=== PATIENT | male | born 1960 | race Caucasian/White ===

== ENCOUNTER 2021-10-12 15:39 | Inpatient (IN) | payer OTHER ==
[2021-10-12] MEDS ORDERED: IBUPROFEN 400 MG TABLET (FP) PO PRN (16:18)
[2021-10-12] MEDS ORDERED: NALOXONE HCL (KLOXXADO) 8 MG SPRAY NS PRN (16:18)
[2021-10-12] MEDS ORDERED: LOPERAMIDE HCL 2 MG CAPSULE PO PRN (16:18)
[2021-10-12] MEDS ORDERED: MAG HYDROX/AL HYDROX/SIMETH 30 ML UNIT-DOSE CUP PO PRN (16:18)
[2021-10-12] MEDS ORDERED: ONDANSETRON *ODT* 4 MG TABLET SL PRN (16:18)
[2021-10-12] MEDS ORDERED: BENZOCAINE/MENTHOL (CHLORASEPTIC ) LOZENGE MM PRN (16:18)
[2021-10-12] MEDS ORDERED: MAGNESIUM CITRATE 300 ML BOTTLE PO PRN (16:18)
[2021-10-12] MEDS ORDERED: ACETAMINOPHEN 325 MG TABLET (FP) PO PRN ×2 (16:18)
[2021-10-12] MEDS ORDERED: MAGNESIUM HYDROX 2400MG/30ML ORAL SUSPENSION 30 ML CUP PO PRN (16:18)
[2021-10-12] MEDS ORDERED: BISMUTH SUBSALICYLATE 524 MG/30 ML PO PRN (16:18)
[2021-10-12] MEDS ORDERED: NICOTINE 10 MG CARTRIDGE (INHALER) IH PRN (16:18)
[2021-10-12] MEDS ORDERED: DICYCLOMINE HCL 10 MG CAPSULE PO PRN (16:18)
[2021-10-12 19:02] VITALS: BMI 24.1
[2021-10-12] MEDS ORDERED: hydrOXYzine PAMOATE 25 MG CAPSULE (FP) PO ONE (22:21)
[2021-10-12] MEDS: diazePAM 5 MG TABLET PO SCH (22:25)
[2021-10-12] MEDS: hydrOXYzine PAMOATE 25 MG CAPSULE (FP) PO SCH ×2 (22:25)
[2021-10-13] MEDS: MELATONIN 5 MG TABLETS PO SCH ×2 (06:50→22:54)
[2021-10-13] MEDS: THIAMINE HCL 100 MG TABLET (FP) PO SCH ×2 (06:51→22:54)
[2021-10-13] MEDS: NICOTINE 14 MG/24 HOURS TOPICAL PATCH TD SCH ×2 (06:51→11:02)
[2021-10-13] MEDS: diazePAM 5 MG TABLET PO SCH ×5 (06:51→22:54)
[2021-10-13] MEDS ORDERED: hydrOXYzine PAMOATE 25 MG CAPSULE (FP) PO ONE (06:53)
[2021-10-13] MEDS ORDERED: diazePAM 5 MG TABLET ONE (06:53)
[2021-10-13] MEDS: hydrOXYzine PAMOATE 25 MG CAPSULE (FP) PO SCH ×5 (06:56→22:54)
[2021-10-13 10:01] LABS: HEMATOCRIT 38.4 % (35.4-49); HEMOGLOBIN 12.7 GM/dL (11.7-16.9); MCH 29.7 pg (25.7-33.7); MCHC 33.1 g/dl (32.0-35.9); MEAN CELL VOLUME 89.6 fl (80-96); MEAN PLT VOLUME 7.4 fl (7.5-11.1); PLATELET COUNT 345 10^3/uL (134-434); RBC 4.28 M/mm3 (4.00-5.60); WHITE BLOOD COUNT 5.2 K/mm3 (4.0-10.0)
[2021-10-13 10:29] LABS: ALBUMIN 3.1 g/dl (3.4-5.0); CALCIUM 9.1 mg/dL (8.5-10.1)
[2021-10-13 10:32] LABS: CREATININE 0.7 mg/dL (0.55-1.3)
[2021-10-13 10:34] LABS: BILIRUBIN,TOTAL 0.6 mg/dL (0.2-1); TOT PROT 6.3 g/dl (6.4-8.2)
[2021-10-13] MEDS: METHOCARBAMOL 500 MG TABLET PO PRN (11:01)
[2021-10-13] MEDS: PRENATAL VITAMINS W/ FOLIC ACID TABLET (FP) PO SCH (11:02)
[2021-10-13] MEDS: diazePAM 5 MG TABLET PO PRN (18:33)
[2021-10-13] MEDS ORDERED: methaDONE HCL 40 MG DISPERSABLE TABLET PO ONE (20:01)
[2021-10-14] MEDS: diazePAM 5 MG TABLET PO SCH ×3 (07:12→21:29)
[2021-10-14] MEDS: hydrOXYzine PAMOATE 25 MG CAPSULE (FP) PO SCH ×5 (07:13→21:29)
[2021-10-14 09:51] LABS: CALCIUM 9.1 mg/dL (8.5-10.1)
[2021-10-14 09:52] LABS: ALBUMIN 2.9 g/dl (3.4-5.0); BLOOD UREA NITROGEN 17.6 mg/dL (7-18)
[2021-10-14 09:55] LABS: CREATININE 0.8 mg/dL (0.55-1.3)
[2021-10-14 09:56] LABS: BILIRUBIN,TOTAL 0.3 mg/dL (0.2-1); TOT PROT 6.1 g/dl (6.4-8.2)
[2021-10-14] MEDS: NICOTINE 14 MG/24 HOURS TOPICAL PATCH TD SCH (11:22)
[2021-10-14] MEDS: PRENATAL VITAMINS W/ FOLIC ACID TABLET (FP) PO SCH (11:22)
[2021-10-14] MEDS: METHOCARBAMOL 500 MG TABLET PO PRN ×2 (11:23→21:29)
[2021-10-14] MEDS: diazePAM 5 MG TABLET PO PRN (11:23)
[2021-10-14] MEDS: methaDONE HCL 10 MG TABLET PO SCH (11:58)
[2021-10-14] MEDS: MELATONIN 5 MG TABLETS PO SCH (21:29)
[2021-10-14] MEDS: THIAMINE HCL 100 MG TABLET (FP) PO SCH (21:29)
[2021-10-15] MEDS ORDERED: diazePAM 5 MG TABLET PO SCH (06:00)
[2021-10-15] MEDS: hydrOXYzine PAMOATE 25 MG CAPSULE (FP) PO SCH ×3 (06:44→13:11)
[2021-10-15] MEDS: methaDONE HCL 10 MG TABLET PO SCH (06:44)
[2021-10-15] MEDS: NICOTINE 14 MG/24 HOURS TOPICAL PATCH TD SCH (10:36)
[2021-10-15] MEDS: PRENATAL VITAMINS W/ FOLIC ACID TABLET (FP) PO SCH (10:36)
[2021-10-15] MEDS: METHOCARBAMOL 500 MG TABLET PO PRN (10:37)
[2021-10-15 13:42] VITALS: BP 136/74; PULSE 74; TEMP 96.8
[2021-10-16] MEDS ORDERED: diazePAM 5 MG TABLET PO ONE (06:00)
== END 2021-10-15 18:00 | disposition home or self-care (01) | DRG 773 ==
LOC: YASAS 15:39 → Y6N 10-13 10:07
PROVIDERS: ADMIT Allergy & Immunology; ATTEND Surgery
PROC: HZ2ZZZZ Detoxification Services for Substance Abuse Treatment (ICD-10-PCS; principal; 2021-10-13)
DX: F11.23 Opioid dependence with withdrawal (principal); F10.230 Alcohol dependence with withdrawal, uncomplicated; F14.10 Cocaine abuse, uncomplicated; F17.210 Nicotine dependence, cigarettes, uncomplicated; F19.24 Other psychoactive substance dependence with psychoactive substance-induced mood disorder; F20.9 Schizophrenia, unspecified; F41.9 Anxiety disorder, unspecified; F32.A Depression, unspecified; Z56.0 Unemployment, unspecified; Z59.00 Homelessness unspecified
CPT/HCPCS: 36415; 80053; 82947; 85027; 86780; 93005; 93010; C9803-CS; U0003; U0005

== ENCOUNTER 2021-11-08 12:21 | Inpatient (IN) | payer OTHER ==
[2021-11-08 12:46] VITALS: BMI 24.1
[2021-11-08] MEDS ORDERED: IBUPROFEN 400 MG TABLET (FP) PO PRN (14:29)
[2021-11-08] MEDS ORDERED: NALOXONE HCL (KLOXXADO) 8 MG SPRAY NS PRN (14:29)
[2021-11-08] MEDS ORDERED: ONDANSETRON *ODT* 4 MG TABLET SL PRN (14:29)
[2021-11-08] MEDS ORDERED: IBUPROFEN 600 MG TABLET (FP) PO PRN (14:29)
[2021-11-08] MEDS ORDERED: MAGNESIUM HYDROX 2400MG/30ML ORAL SUSPENSION 30 ML CUP PO PRN (14:29)
[2021-11-08] MEDS ORDERED: ACETAMINOPHEN 325 MG TABLET (FP) PO PRN ×2 (14:29)
[2021-11-08] MEDS ORDERED: MAG HYDROX/AL HYDROX/SIMETH 30 ML UNIT-DOSE CUP PO PRN (14:29)
[2021-11-08] MEDS ORDERED: LOPERAMIDE HCL 2 MG CAPSULE PO PRN (14:29)
[2021-11-08] MEDS ORDERED: BISMUTH SUBSALICYLATE 262 MG/15 ML BTL PO PRN (14:29)
[2021-11-08] MEDS ORDERED: DICYCLOMINE HCL 10 MG CAPSULE PO PRN (14:29)
[2021-11-08] MEDS ORDERED: NICOTINE 10 MG CARTRIDGE (INHALER) IH PRN (14:29)
[2021-11-08] MEDS ORDERED: MAGNESIUM CITRATE 300 ML BOTTLE PO PRN (14:29)
[2021-11-08] MEDS ORDERED: BENZOCAINE/MENTHOL (CHLORASEPTIC ) LOZENGE MM PRN (14:29)
[2021-11-08] MEDS: hydrOXYzine PAMOATE 25 MG CAPSULE (FP) PO SCH ×2 (18:30→22:44)
[2021-11-08] MEDS ORDERED: LORazepam 1 MG TABLET PO PRN (18:40)
[2021-11-08] MEDS: THIAMINE HCL 100 MG TABLET (FP) PO SCH (22:44)
[2021-11-08] MEDS: LORazepam 2 MG TABLET PO SCH (22:44)
[2021-11-08] MEDS: METHOCARBAMOL 500 MG TABLET PO PRN (22:44)
[2021-11-08] MEDS: MELATONIN 5 MG TABLETS PO SCH (22:44)
[2021-11-09] MEDS: LORazepam 2 MG TABLET PO SCH ×4 (07:00→22:14)
[2021-11-09] MEDS: hydrOXYzine PAMOATE 25 MG CAPSULE (FP) PO SCH ×5 (07:00→22:14)
[2021-11-09 10:14] LABS: HEMOGLOBIN 12.8 GM/dL (11.7-16.9); MCH 29.2 pg (25.7-33.7); MCHC 33.6 g/dl (32.0-35.9); MEAN CELL VOLUME 86.8 fl (80-96); MEAN PLT VOLUME 7.6 fl (7.5-11.1); PLATELET COUNT 340 10^3/uL (134-434); RBC 4.38 M/mm3 (4.00-5.60); RDW 14.1 % (11.9-15.9); WHITE BLOOD COUNT 5.6 K/mm3 (4.0-10.0)
[2021-11-09 10:17] LABS: ALBUMIN 3.2 g/dl (3.4-5.0)
[2021-11-09 10:19] LABS: TOT PROT 6.7 g/dl (6.4-8.2)
[2021-11-09 10:20] LABS: BILIRUBIN,TOTAL 0.4 mg/dL (0.2-1); CREATININE 0.8 mg/dL (0.55-1.3)
[2021-11-09] MEDS: PRENATAL VITAMINS W/ FOLIC ACID TABLET (FP) PO SCH (10:20)
[2021-11-09] MEDS: MELATONIN 5 MG TABLETS PO SCH (22:14)
[2021-11-09] MEDS: METHOCARBAMOL 500 MG TABLET PO PRN (22:14)
[2021-11-09] MEDS: THIAMINE HCL 100 MG TABLET (FP) PO SCH (22:14)
[2021-11-10] MEDS: LORazepam 1 MG TABLET PO SCH ×2 (06:34→10:44)
[2021-11-10] MEDS: hydrOXYzine PAMOATE 25 MG CAPSULE (FP) PO SCH ×2 (06:35→10:44)
[2021-11-10] MEDS: PRENATAL VITAMINS W/ FOLIC ACID TABLET (FP) PO SCH (10:44)
[2021-11-10 12:53] VITALS: BP 125/77; PULSE 96; TEMP 97.5
[2021-11-11] MEDS ORDERED: LORazepam 0.5 MG TABLET PO PRN
[2021-11-11] MEDS ORDERED: LORazepam 0.5 MG TABLET PO SCH (05:00)
[2021-11-12] MEDS ORDERED: LORazepam 0.5 MG TABLET PO ONE (05:00)
== END 2021-11-10 13:18 | disposition left against medical advice (07) | DRG 770 ==
LOC: YASAS 12:21 → UNDOADMIN 15:43 → Y3N 15:43
PROVIDERS: ADMIT Allergy & Immunology; ATTEND Surgery
PROC: HZ2ZZZZ Detoxification Services for Substance Abuse Treatment (ICD-10-PCS; principal; 2021-11-08)
DX: F11.23 Opioid dependence with withdrawal (principal); F10.230 Alcohol dependence with withdrawal, uncomplicated; F14.20 Cocaine dependence, uncomplicated; F13.20 Sedative, hypnotic or anxiolytic dependence, uncomplicated; F12.20 Cannabis dependence, uncomplicated; F19.951 Other psychoactive substance use, unspecified with psychoactive substance-induced psychotic disorder with hallucinations; F17.210 Nicotine dependence, cigarettes, uncomplicated; F19.24 Other psychoactive substance dependence with psychoactive substance-induced mood disorder
CPT/HCPCS: 36415; 80053; 85027; 86780; C9803-CS; U0003; U0005

== ENCOUNTER 2022-04-17 13:42 | Inpatient (IN) | payer OTHER ==
[2022-04-17 15:07] VITALS: BMI 24.1
[2022-04-17] MEDS ORDERED: MAGNESIUM HYDROX 2400MG/30ML ORAL SUSPENSION 30 ML CUP PO PRN (17:11)
[2022-04-17] MEDS ORDERED: guaiFENesin 200 MG/10 ML 10 ML UNIT-DOSE CUPS PO PRN (17:11)
[2022-04-17] MEDS ORDERED: hydrOXYzine PAMOATE 25 MG CAPSULE (FP) PO PRN (17:11)
[2022-04-17] MEDS ORDERED: MAG HYDROX/AL HYDROX/SIMETH 30 ML UNIT-DOSE CUP PO PRN (17:11)
[2022-04-17] MEDS ORDERED: ACETAMINOPHEN 325 MG TABLET (FP) PO PRN (17:11)
[2022-04-17] MEDS ORDERED: P-EPHED 60MG/TRIPROLIDI 2.5MG TABLET PO PRN (17:11)
[2022-04-17] MEDS ORDERED: LOPERAMIDE HCL 2 MG CAPSULE PO PRN (17:11)
[2022-04-17] MEDS ORDERED: NALOXONE HCL 0.4 MG/ML VIAL IM PRN (17:11)
[2022-04-17] MEDS ORDERED: MAGNESIUM CITRATE 300 ML BOTTLE PO PRN (17:11)
[2022-04-17] MEDS: MELATONIN 5 MG TABLETS PO SCH (21:28)
[2022-04-17] MEDS: THIAMINE HCL 100 MG TABLET (FP) PO SCH (21:28)
[2022-04-17] MEDS: CEPHALEXIN MONOHYDRATE 500 MG CAPSULE (UD) PO SCH (21:29)
[2022-04-18] MEDS: PRENATAL VITAMINS W/ FOLIC ACID TABLET (FP) PO SCH (09:25)
[2022-04-18] MEDS: BUPRENORPHINE/NALOXONE 8 MG/2 MG FILM PACKET SL SCH (09:26)
[2022-04-18] MEDS: CEPHALEXIN MONOHYDRATE 500 MG CAPSULE (UD) PO SCH ×2 (09:26→21:16)
[2022-04-18] MEDS: NICOTINE 7 MG/24 HOURS TOPICAL PATCH TD SCH (09:26)
[2022-04-18] MEDS: IBUPROFEN 400 MG TABLET (FP) PO PRN (09:27)
[2022-04-18 10:55] LABS: HEMATOCRIT 36.9 % (35.4-49); HEMOGLOBIN 12.3 GM/dL (11.7-16.9); MCH 28.9 pg (25.7-33.7); MCHC 33.3 g/dl (32.0-35.9); MEAN CELL VOLUME 86.8 fl (80-96); MEAN PLT VOLUME 6.8 fl (7.5-11.1); PLATELET COUNT 420 10^3/uL (134-434); RBC 4.26 M/mm3 (4.00-5.60); RDW 16.3 % (11.9-15.9); WHITE BLOOD COUNT 6.4 K/mm3 (4.0-10.0)
[2022-04-18 11:14] LABS: URINE APPEARANCE CLEAR; URINE BILIRUBIN NEGATIVE (NEGATIVE); URINE COLOR YELLOW; URINE GLUCOSE (UA) NEGATIVE (NEGATIVE); URINE KETONE NEGATIVE (NEGATIVE); URINE LEUK ESTERASE NEGATIVE (NEGATIVE); URINE NITRITE NEGATIVE (NEGATIVE); URINE PROTEIN NEGATIVE (NEGATIVE); URINE UROBILINOGEN 0.2 mg/dL (0.2-1.0)
[2022-04-18 11:41] LABS: ALBUMIN 2.9 g/dl (3.4-5.0); BLOOD UREA NITROGEN 22.9 mg/dL (7-18); CALCIUM 8.8 mg/dL (8.5-10.1)
[2022-04-18 11:45] LABS: BILIRUBIN,TOTAL 0.3 mg/dL (0.2-1)
[2022-04-18 11:49] LABS: TOT PROT 6.2 g/dl (6.4-8.2)
[2022-04-18 12:27] LABS: SYPHILIS W/ RPR CONF NON-REACTIVE (NONREACTIVE)
[2022-04-18] MEDS: THIAMINE HCL 100 MG TABLET (FP) PO SCH (21:16)
[2022-04-18] MEDS: MELATONIN 5 MG TABLETS PO SCH (21:16)
[2022-04-18] MEDS: BACLOFEN 10 MG TABLET (FP) PO SCH (21:17)
[2022-04-19] MEDS: PRENATAL VITAMINS W/ FOLIC ACID TABLET (FP) PO SCH (09:57)
[2022-04-19] MEDS: IBUPROFEN 400 MG TABLET (FP) PO PRN (09:58)
[2022-04-19] MEDS: NICOTINE 10 MG CARTRIDGE (INHALER) IH PRN (09:59)
[2022-04-19] MEDS: NICOTINE 7 MG/24 HOURS TOPICAL PATCH TD SCH (10:00)
[2022-04-19] MEDS: BUPRENORPHINE/NALOXONE 8 MG/2 MG FILM PACKET SL SCH (10:00)
[2022-04-19] MEDS: BACLOFEN 10 MG TABLET (FP) PO SCH ×2 (10:00→21:14)
[2022-04-19] MEDS: CEPHALEXIN MONOHYDRATE 500 MG CAPSULE (UD) PO SCH ×2 (10:00→21:14)
[2022-04-19] MEDS ORDERED: BACITRACIN 15 GM TUBE TOPICAL OINTMENT TP SCH (10:00)
[2022-04-19] MEDS: BACITRACIN 0.9 GM PACKET TP SCH ×2 (10:49→21:15)
[2022-04-19] MEDS: THIAMINE HCL 100 MG TABLET (FP) PO SCH (21:14)
[2022-04-19] MEDS: MELATONIN 5 MG TABLETS PO SCH (21:14)
[2022-04-20] MEDS: PRENATAL VITAMINS W/ FOLIC ACID TABLET (FP) PO SCH (09:38)
[2022-04-20] MEDS: NICOTINE 7 MG/24 HOURS TOPICAL PATCH TD SCH (09:38)
[2022-04-20] MEDS: IBUPROFEN 400 MG TABLET (FP) PO PRN (09:39)
[2022-04-20] MEDS: BACITRACIN 0.9 GM PACKET TP SCH ×2 (09:39→21:08)
[2022-04-20] MEDS: CEPHALEXIN MONOHYDRATE 500 MG CAPSULE (UD) PO SCH ×2 (09:40→21:08)
[2022-04-20] MEDS: BUPRENORPHINE/NALOXONE 8 MG/2 MG FILM PACKET SL SCH (09:40)
[2022-04-20] MEDS: BACLOFEN 10 MG TABLET (FP) PO SCH ×2 (09:40→21:08)
[2022-04-20] MEDS: NICOTINE 10 MG CARTRIDGE (INHALER) IH PRN (09:42)
[2022-04-20] MEDS: MELATONIN 5 MG TABLETS PO SCH (21:08)
[2022-04-20] MEDS: THIAMINE HCL 100 MG TABLET (FP) PO SCH (21:08)
[2022-04-21] MEDS: PRENATAL VITAMINS W/ FOLIC ACID TABLET (FP) PO SCH (09:16)
[2022-04-21] MEDS: BUPRENORPHINE/NALOXONE 8 MG/2 MG FILM PACKET SL SCH (09:17)
[2022-04-21] MEDS: CEPHALEXIN MONOHYDRATE 500 MG CAPSULE (UD) PO SCH ×2 (09:17→21:50)
[2022-04-21] MEDS: BACLOFEN 10 MG TABLET (FP) PO SCH ×2 (09:17→21:50)
[2022-04-21] MEDS: BACITRACIN 0.9 GM PACKET TP SCH ×2 (09:19→21:49)
[2022-04-21] MEDS: NICOTINE 7 MG/24 HOURS TOPICAL PATCH TD SCH (09:19)
[2022-04-21] MEDS: MELATONIN 5 MG TABLETS PO SCH (21:50)
[2022-04-21] MEDS: THIAMINE HCL 100 MG TABLET (FP) PO SCH (21:50)
[2022-04-22] MEDS: NICOTINE 7 MG/24 HOURS TOPICAL PATCH TD SCH (09:52)
[2022-04-22] MEDS: BUPRENORPHINE/NALOXONE 8 MG/2 MG FILM PACKET SL SCH (09:52)
[2022-04-22] MEDS: PRENATAL VITAMINS W/ FOLIC ACID TABLET (FP) PO SCH (09:52)
[2022-04-22] MEDS: CEPHALEXIN MONOHYDRATE 500 MG CAPSULE (UD) PO SCH ×2 (09:53→21:47)
[2022-04-22] MEDS: BACITRACIN 0.9 GM PACKET TP SCH ×2 (09:53→21:49)
[2022-04-22] MEDS: BACLOFEN 10 MG TABLET (FP) PO SCH ×2 (09:53→21:47)
[2022-04-22] MEDS: THIAMINE HCL 100 MG TABLET (FP) PO SCH (21:48)
[2022-04-22] MEDS: MELATONIN 5 MG TABLETS PO SCH (21:48)
[2022-04-23] MEDS: BACITRACIN 0.9 GM PACKET TP SCH ×2 (09:39→21:19)
[2022-04-23] MEDS: BUPRENORPHINE/NALOXONE 8 MG/2 MG FILM PACKET SL SCH (09:40)
[2022-04-23] MEDS: PRENATAL VITAMINS W/ FOLIC ACID TABLET (FP) PO SCH (09:40)
[2022-04-23] MEDS: CEPHALEXIN MONOHYDRATE 500 MG CAPSULE (UD) PO SCH (09:40)
[2022-04-23] MEDS: NICOTINE 7 MG/24 HOURS TOPICAL PATCH TD SCH (09:40)
[2022-04-23] MEDS: BACLOFEN 10 MG TABLET (FP) PO SCH ×3 (09:40→21:19)
[2022-04-23] MEDS: LIDOCAINE 5% TOPICAL PATCH TP SCH (11:00)
[2022-04-23] MEDS ORDERED: NICOTINE 7 MG/24 HOURS TOPICAL PATCH TD PRN (12:32)
[2022-04-23] MEDS: LIDOCAINE PATCH REMOVAL MC SCH (21:19)
[2022-04-23] MEDS: THIAMINE HCL 100 MG TABLET (FP) PO SCH (21:19)
[2022-04-23] MEDS: MELATONIN 5 MG TABLETS PO SCH (21:19)
[2022-04-24] MEDS: BACLOFEN 10 MG TABLET (FP) PO SCH ×3 (06:32→21:33)
[2022-04-24] MEDS: IBUPROFEN 400 MG TABLET (FP) PO PRN (09:00)
[2022-04-24] MEDS: BACITRACIN 0.9 GM PACKET TP SCH ×2 (09:00→21:33)
[2022-04-24] MEDS: BUPRENORPHINE/NALOXONE 8 MG/2 MG FILM PACKET SL SCH (09:01)
[2022-04-24] MEDS: LIDOCAINE 5% TOPICAL PATCH TP SCH (09:01)
[2022-04-24] MEDS: PRENATAL VITAMINS W/ FOLIC ACID TABLET (FP) PO SCH (09:01)
[2022-04-24] MEDS: LIDOCAINE PATCH REMOVAL MC SCH (21:33)
[2022-04-24] MEDS: THIAMINE HCL 100 MG TABLET (FP) PO SCH (21:33)
[2022-04-24] MEDS: MELATONIN 5 MG TABLETS PO SCH (21:33)
[2022-04-25] MEDS: BACLOFEN 10 MG TABLET (FP) PO SCH ×3 (06:36→21:09)
[2022-04-25] MEDS: NICOTINE 10 MG CARTRIDGE (INHALER) IH PRN (09:58)
[2022-04-25] MEDS: PRENATAL VITAMINS W/ FOLIC ACID TABLET (FP) PO SCH (10:10)
[2022-04-25] MEDS: LIDOCAINE 5% TOPICAL PATCH TP SCH (10:10)
[2022-04-25] MEDS: BUPRENORPHINE/NALOXONE 8 MG/2 MG FILM PACKET SL SCH (10:10)
[2022-04-25] MEDS: BACITRACIN 0.9 GM PACKET TP SCH ×2 (10:11→21:09)
[2022-04-25] MEDS: THIAMINE HCL 100 MG TABLET (FP) PO SCH (21:09)
[2022-04-25] MEDS: MELATONIN 5 MG TABLETS PO SCH (21:09)
[2022-04-25] MEDS: LIDOCAINE PATCH REMOVAL MC SCH (21:09)
[2022-04-26] MEDS: BACLOFEN 10 MG TABLET (FP) PO SCH ×3 (06:05→21:25)
[2022-04-26] MEDS: PRENATAL VITAMINS W/ FOLIC ACID TABLET (FP) PO SCH (10:06)
[2022-04-26] MEDS: BACITRACIN 0.9 GM PACKET TP SCH ×2 (10:06→21:25)
[2022-04-26] MEDS: LIDOCAINE 5% TOPICAL PATCH TP SCH (10:06)
[2022-04-26] MEDS: BUPRENORPHINE/NALOXONE 8 MG/2 MG FILM PACKET SL SCH (10:07)
[2022-04-26] MEDS: MELATONIN 5 MG TABLETS PO SCH (21:24)
[2022-04-26] MEDS: THIAMINE HCL 100 MG TABLET (FP) PO SCH (21:24)
[2022-04-26] MEDS: LIDOCAINE PATCH REMOVAL MC SCH (21:25)
[2022-04-27] MEDS: BACLOFEN 10 MG TABLET (FP) PO SCH ×3 (06:05→21:49)
[2022-04-27] MEDS: LIDOCAINE 5% TOPICAL PATCH TP SCH (09:03)
[2022-04-27] MEDS: BACITRACIN 0.9 GM PACKET TP SCH ×2 (09:03→21:49)
[2022-04-27] MEDS: PRENATAL VITAMINS W/ FOLIC ACID TABLET (FP) PO SCH (09:04)
[2022-04-27] MEDS: NICOTINE 10 MG CARTRIDGE (INHALER) IH PRN (09:06)
[2022-04-27] MEDS: BUPRENORPHINE/NALOXONE 8 MG/2 MG FILM PACKET SL SCH (09:07)
[2022-04-27] MEDS: MELATONIN 5 MG TABLETS PO SCH (21:49)
[2022-04-27] MEDS: LIDOCAINE PATCH REMOVAL MC SCH (21:50)
[2022-04-27] MEDS: THIAMINE HCL 100 MG TABLET (FP) PO SCH (21:50)
[2022-04-28] MEDS: BACLOFEN 10 MG TABLET (FP) PO SCH ×3 (06:19→21:23)
[2022-04-28] MEDS: NICOTINE 10 MG CARTRIDGE (INHALER) IH PRN (06:19)
[2022-04-28] MEDS: PRENATAL VITAMINS W/ FOLIC ACID TABLET (FP) PO SCH (09:43)
[2022-04-28] MEDS: LIDOCAINE 5% TOPICAL PATCH TP SCH (09:43)
[2022-04-28] MEDS: BUPRENORPHINE/NALOXONE 8 MG/2 MG FILM PACKET SL SCH (09:43)
[2022-04-28] MEDS: BACITRACIN 0.9 GM PACKET TP SCH ×2 (09:44→21:23)
[2022-04-28] MEDS: THIAMINE HCL 100 MG TABLET (FP) PO SCH (21:23)
[2022-04-28] MEDS: MELATONIN 5 MG TABLETS PO SCH (21:23)
[2022-04-28] MEDS: LIDOCAINE PATCH REMOVAL MC SCH (21:23)
[2022-04-29] MEDS: BACLOFEN 10 MG TABLET (FP) PO SCH ×3 (05:59→21:25)
[2022-04-29] MEDS: PRENATAL VITAMINS W/ FOLIC ACID TABLET (FP) PO SCH (09:32)
[2022-04-29] MEDS: BUPRENORPHINE/NALOXONE 8 MG/2 MG FILM PACKET SL SCH (09:32)
[2022-04-29] MEDS: LIDOCAINE 5% TOPICAL PATCH TP SCH ×2 (09:34→10:31)
[2022-04-29] MEDS: BACITRACIN 0.9 GM PACKET TP SCH ×2 (09:34→21:25)
[2022-04-29] MEDS: LIDOCAINE PATCH REMOVAL MC SCH (21:25)
[2022-04-29] MEDS: MELATONIN 5 MG TABLETS PO SCH (21:25)
[2022-04-29] MEDS: THIAMINE HCL 100 MG TABLET (FP) PO SCH (21:25)
[2022-04-30] MEDS: NICOTINE 10 MG CARTRIDGE (INHALER) IH PRN (06:20)
[2022-04-30] MEDS: BACLOFEN 10 MG TABLET (FP) PO SCH ×3 (06:23→21:44)
[2022-04-30] MEDS: PRENATAL VITAMINS W/ FOLIC ACID TABLET (FP) PO SCH (09:59)
[2022-04-30] MEDS: BACITRACIN 0.9 GM PACKET TP SCH ×2 (09:59→21:44)
[2022-04-30] MEDS: LIDOCAINE 5% TOPICAL PATCH TP SCH (10:00)
[2022-04-30] MEDS: BUPRENORPHINE/NALOXONE 8 MG/2 MG FILM PACKET SL SCH (10:01)
[2022-04-30] MEDS: THIAMINE HCL 100 MG TABLET (FP) PO SCH (21:44)
[2022-04-30] MEDS: MELATONIN 5 MG TABLETS PO SCH (21:44)
[2022-04-30] MEDS: LIDOCAINE PATCH REMOVAL MC SCH (21:54)
[2022-05-01] MEDS: BACLOFEN 10 MG TABLET (FP) PO SCH ×3 (06:06→21:38)
[2022-05-01] MEDS: LIDOCAINE 5% TOPICAL PATCH TP SCH (09:37)
[2022-05-01] MEDS: BACITRACIN 0.9 GM PACKET TP SCH ×2 (09:37→21:39)
[2022-05-01] MEDS: PRENATAL VITAMINS W/ FOLIC ACID TABLET (FP) PO SCH (09:37)
[2022-05-01] MEDS: NICOTINE 10 MG CARTRIDGE (INHALER) IH PRN (09:38)
[2022-05-01] MEDS: BUPRENORPHINE/NALOXONE 8 MG/2 MG FILM PACKET SL SCH (09:38)
[2022-05-01] MEDS: LIDOCAINE PATCH REMOVAL MC SCH (21:38)
[2022-05-01] MEDS: THIAMINE HCL 100 MG TABLET (FP) PO SCH (21:38)
[2022-05-01] MEDS: MELATONIN 5 MG TABLETS PO SCH (21:38)
[2022-05-02] MEDS: BACLOFEN 10 MG TABLET (FP) PO SCH ×3 (06:33→21:10)
[2022-05-02] MEDS: PRENATAL VITAMINS W/ FOLIC ACID TABLET (FP) PO SCH (09:39)
[2022-05-02] MEDS: LIDOCAINE 5% TOPICAL PATCH TP SCH (09:39)
[2022-05-02] MEDS: BACITRACIN 0.9 GM PACKET TP SCH ×2 (09:40→21:10)
[2022-05-02] MEDS: BUPRENORPHINE/NALOXONE 8 MG/2 MG FILM PACKET SL SCH (09:40)
[2022-05-02] MEDS: NICOTINE 10 MG CARTRIDGE (INHALER) IH PRN (09:41)
[2022-05-02] MEDS: THIAMINE HCL 100 MG TABLET (FP) PO SCH (21:10)
[2022-05-02] MEDS: MELATONIN 5 MG TABLETS PO SCH (21:10)
[2022-05-02] MEDS: LIDOCAINE PATCH REMOVAL MC SCH (21:11)
[2022-05-03] MEDS: BACLOFEN 10 MG TABLET (FP) PO SCH ×3 (06:25→21:12)
[2022-05-03] MEDS: BACITRACIN 0.9 GM PACKET TP SCH ×2 (09:30→21:11)
[2022-05-03] MEDS: PRENATAL VITAMINS W/ FOLIC ACID TABLET (FP) PO SCH (09:30)
[2022-05-03] MEDS: LIDOCAINE 5% TOPICAL PATCH TP SCH (09:30)
[2022-05-03] MEDS: BUPRENORPHINE/NALOXONE 8 MG/2 MG FILM PACKET SL SCH (09:32)
[2022-05-03] MEDS: LIDOCAINE PATCH REMOVAL MC SCH (21:11)
[2022-05-03] MEDS: MELATONIN 5 MG TABLETS PO SCH (21:12)
[2022-05-03] MEDS: THIAMINE HCL 100 MG TABLET (FP) PO SCH (21:12)
[2022-05-04] MEDS: BACLOFEN 10 MG TABLET (FP) PO SCH ×3 (06:33→21:41)
[2022-05-04] MEDS: NICOTINE 10 MG CARTRIDGE (INHALER) IH PRN (06:34)
[2022-05-04] MEDS: PRENATAL VITAMINS W/ FOLIC ACID TABLET (FP) PO SCH (09:37)
[2022-05-04] MEDS: LIDOCAINE 5% TOPICAL PATCH TP SCH (09:38)
[2022-05-04] MEDS: BUPRENORPHINE/NALOXONE 8 MG/2 MG FILM PACKET SL SCH (09:39)
[2022-05-04] MEDS: BACITRACIN 0.9 GM PACKET TP SCH ×2 (09:40→21:41)
[2022-05-04] MEDS: THIAMINE HCL 100 MG TABLET (FP) PO SCH (21:41)
[2022-05-04] MEDS: MELATONIN 5 MG TABLETS PO SCH (21:41)
[2022-05-04] MEDS: LIDOCAINE PATCH REMOVAL MC SCH (21:41)
[2022-05-05] MEDS: BACLOFEN 10 MG TABLET (FP) PO SCH ×3 (06:01→21:17)
[2022-05-05] MEDS: BUPRENORPHINE/NALOXONE 8 MG/2 MG FILM PACKET SL SCH (09:38)
[2022-05-05] MEDS: PRENATAL VITAMINS W/ FOLIC ACID TABLET (FP) PO SCH (09:38)
[2022-05-05] MEDS: LIDOCAINE 5% TOPICAL PATCH TP SCH (09:40)
[2022-05-05] MEDS: BACITRACIN 0.9 GM PACKET TP SCH ×2 (09:40→21:18)
[2022-05-05] MEDS: NICOTINE 10 MG CARTRIDGE (INHALER) IH PRN (17:00)
[2022-05-05] MEDS: THIAMINE HCL 100 MG TABLET (FP) PO SCH (21:17)
[2022-05-05] MEDS: MELATONIN 5 MG TABLETS PO SCH (21:17)
[2022-05-05] MEDS: LIDOCAINE PATCH REMOVAL MC SCH (21:18)
[2022-05-06] MEDS: BACLOFEN 10 MG TABLET (FP) PO SCH ×3 (06:29→21:41)
[2022-05-06] MEDS: PRENATAL VITAMINS W/ FOLIC ACID TABLET (FP) PO SCH (09:42)
[2022-05-06] MEDS: BUPRENORPHINE/NALOXONE 8 MG/2 MG FILM PACKET SL SCH (09:42)
[2022-05-06] MEDS: LIDOCAINE 5% TOPICAL PATCH TP SCH (09:43)
[2022-05-06] MEDS: BACITRACIN 0.9 GM PACKET TP SCH ×2 (09:43→21:42)
[2022-05-06] MEDS: NICOTINE 10 MG CARTRIDGE (INHALER) IH PRN (09:48)
[2022-05-06] MEDS: THIAMINE HCL 100 MG TABLET (FP) PO SCH (21:41)
[2022-05-06] MEDS: LIDOCAINE PATCH REMOVAL MC SCH (21:41)
[2022-05-06] MEDS: MELATONIN 5 MG TABLETS PO SCH (21:41)
[2022-05-07] MEDS: BACLOFEN 10 MG TABLET (FP) PO SCH ×3 (06:46→21:23)
[2022-05-07] MEDS: LIDOCAINE 5% TOPICAL PATCH TP SCH (09:27)
[2022-05-07] MEDS: PRENATAL VITAMINS W/ FOLIC ACID TABLET (FP) PO SCH (09:27)
[2022-05-07] MEDS: BACITRACIN 0.9 GM PACKET TP SCH ×2 (09:27→21:23)
[2022-05-07] MEDS: BUPRENORPHINE/NALOXONE 8 MG/2 MG FILM PACKET SL SCH (09:28)
[2022-05-07] MEDS: THIAMINE HCL 100 MG TABLET (FP) PO SCH (21:23)
[2022-05-07] MEDS: MELATONIN 5 MG TABLETS PO SCH (21:23)
[2022-05-07] MEDS: LIDOCAINE PATCH REMOVAL MC SCH (21:24)
[2022-05-08] MEDS: BACLOFEN 10 MG TABLET (FP) PO SCH ×3 (06:23→22:13)
[2022-05-08] MEDS: PRENATAL VITAMINS W/ FOLIC ACID TABLET (FP) PO SCH (09:44)
[2022-05-08] MEDS: LIDOCAINE 5% TOPICAL PATCH TP SCH (09:44)
[2022-05-08] MEDS: BACITRACIN 0.9 GM PACKET TP SCH ×2 (09:44→22:13)
[2022-05-08] MEDS: BUPRENORPHINE/NALOXONE 8 MG/2 MG FILM PACKET SL SCH (09:45)
[2022-05-08] MEDS: NICOTINE 10 MG CARTRIDGE (INHALER) IH PRN (09:45)
[2022-05-08] MEDS: THIAMINE HCL 100 MG TABLET (FP) PO SCH (22:13)
[2022-05-08] MEDS: MELATONIN 5 MG TABLETS PO SCH (22:13)
[2022-05-08] MEDS: LIDOCAINE PATCH REMOVAL MC SCH (22:13)
[2022-05-09] MEDS: BACLOFEN 10 MG TABLET (FP) PO SCH ×3 (05:53→21:19)
[2022-05-09] MEDS: LIDOCAINE 5% TOPICAL PATCH TP SCH (09:37)
[2022-05-09] MEDS: BACITRACIN 0.9 GM PACKET TP SCH ×2 (09:37→21:19)
[2022-05-09] MEDS: PRENATAL VITAMINS W/ FOLIC ACID TABLET (FP) PO SCH (09:37)
[2022-05-09] MEDS: BUPRENORPHINE/NALOXONE 8 MG/2 MG FILM PACKET SL SCH (09:38)
[2022-05-09] MEDS: NICOTINE 10 MG CARTRIDGE (INHALER) IH PRN (09:38)
[2022-05-09] MEDS: MELATONIN 5 MG TABLETS PO SCH (21:18)
[2022-05-09] MEDS: THIAMINE HCL 100 MG TABLET (FP) PO SCH (21:18)
[2022-05-09] MEDS: LIDOCAINE PATCH REMOVAL MC SCH (21:19)
[2022-05-10] MEDS: BACLOFEN 10 MG TABLET (FP) PO SCH ×3 (06:09→21:19)
[2022-05-10] MEDS: BUPRENORPHINE/NALOXONE 8 MG/2 MG FILM PACKET SL SCH (10:11)
[2022-05-10] MEDS: BACITRACIN 0.9 GM PACKET TP SCH ×2 (10:12→21:19)
[2022-05-10] MEDS: LIDOCAINE 5% TOPICAL PATCH TP SCH (10:12)
[2022-05-10] MEDS: PRENATAL VITAMINS W/ FOLIC ACID TABLET (FP) PO SCH (10:13)
[2022-05-10] MEDS: NICOTINE 10 MG CARTRIDGE (INHALER) IH PRN (16:39)
[2022-05-10] MEDS: MELATONIN 5 MG TABLETS PO SCH (21:19)
[2022-05-10] MEDS: THIAMINE HCL 100 MG TABLET (FP) PO SCH (21:19)
[2022-05-10] MEDS: LIDOCAINE PATCH REMOVAL MC SCH (21:19)
[2022-05-11] MEDS: BACLOFEN 10 MG TABLET (FP) PO SCH ×3 (06:36→21:51)
[2022-05-11] MEDS: LIDOCAINE 5% TOPICAL PATCH TP SCH (09:42)
[2022-05-11] MEDS: BUPRENORPHINE/NALOXONE 8 MG/2 MG FILM PACKET SL SCH (09:43)
[2022-05-11] MEDS: BACITRACIN 0.9 GM PACKET TP SCH ×2 (09:43→21:51)
[2022-05-11] MEDS: NICOTINE 10 MG CARTRIDGE (INHALER) IH PRN (09:43)
[2022-05-11] MEDS: PRENATAL VITAMINS W/ FOLIC ACID TABLET (FP) PO SCH (09:43)
[2022-05-11] MEDS: MELATONIN 5 MG TABLETS PO SCH (21:51)
[2022-05-11] MEDS: LIDOCAINE PATCH REMOVAL MC SCH (21:51)
[2022-05-11] MEDS: THIAMINE HCL 100 MG TABLET (FP) PO SCH (21:51)
[2022-05-12] MEDS: BACLOFEN 10 MG TABLET (FP) PO SCH ×3 (06:11→21:59)
[2022-05-12] MEDS: PRENATAL VITAMINS W/ FOLIC ACID TABLET (FP) PO SCH (09:55)
[2022-05-12] MEDS: BACITRACIN 0.9 GM PACKET TP SCH ×2 (09:56→21:59)
[2022-05-12] MEDS: LIDOCAINE 5% TOPICAL PATCH TP SCH (09:56)
[2022-05-12] MEDS: BUPRENORPHINE/NALOXONE 8 MG/2 MG FILM PACKET SL SCH (09:56)
[2022-05-12] MEDS: NICOTINE 10 MG CARTRIDGE (INHALER) IH PRN (10:02)
[2022-05-12] MEDS: THIAMINE HCL 100 MG TABLET (FP) PO SCH (21:55)
[2022-05-12] MEDS: LIDOCAINE PATCH REMOVAL MC SCH (21:59)
[2022-05-12] MEDS: MELATONIN 5 MG TABLETS PO SCH (21:59)
[2022-05-13] MEDS: BACLOFEN 10 MG TABLET (FP) PO SCH ×3 (06:31→21:48)
[2022-05-13] MEDS: LIDOCAINE 5% TOPICAL PATCH TP SCH (09:48)
[2022-05-13] MEDS: PRENATAL VITAMINS W/ FOLIC ACID TABLET (FP) PO SCH (09:48)
[2022-05-13] MEDS: BUPRENORPHINE/NALOXONE 8 MG/2 MG FILM PACKET SL SCH (09:48)
[2022-05-13] MEDS: BACITRACIN 0.9 GM PACKET TP SCH ×2 (09:48→21:47)
[2022-05-13] MEDS: NICOTINE 10 MG CARTRIDGE (INHALER) IH PRN (09:50)
[2022-05-13] MEDS: THIAMINE HCL 100 MG TABLET (FP) PO SCH (21:48)
[2022-05-13] MEDS: MELATONIN 5 MG TABLETS PO SCH (21:48)
[2022-05-13] MEDS: LIDOCAINE PATCH REMOVAL MC SCH (21:48)
[2022-05-14] MEDS: BACLOFEN 10 MG TABLET (FP) PO SCH ×3 (06:30→22:28)
[2022-05-14 06:42] VITALS: RESP 18; TEMP 98.4
[2022-05-14] MEDS: BACITRACIN 0.9 GM PACKET TP SCH ×2 (10:11→22:28)
[2022-05-14] MEDS: LIDOCAINE 5% TOPICAL PATCH TP SCH (10:11)
[2022-05-14] MEDS: PRENATAL VITAMINS W/ FOLIC ACID TABLET (FP) PO SCH (10:12)
[2022-05-14] MEDS: BUPRENORPHINE/NALOXONE 8 MG/2 MG FILM PACKET SL SCH (10:12)
[2022-05-14] MEDS: NICOTINE 10 MG CARTRIDGE (INHALER) IH PRN (10:13)
[2022-05-14] MEDS: LIDOCAINE PATCH REMOVAL MC SCH (22:28)
[2022-05-14] MEDS: THIAMINE HCL 100 MG TABLET (FP) PO SCH (22:29)
[2022-05-14] MEDS: MELATONIN 5 MG TABLETS PO SCH (22:29)
[2022-05-15] MEDS: BACLOFEN 10 MG TABLET (FP) PO SCH (06:17)
[2022-05-15 06:37] VITALS: BP 149/84; PULSE 67
[2022-05-15] MEDS: LIDOCAINE 5% TOPICAL PATCH TP SCH (09:09)
[2022-05-15] MEDS: PRENATAL VITAMINS W/ FOLIC ACID TABLET (FP) PO SCH (09:09)
[2022-05-15] MEDS: BUPRENORPHINE/NALOXONE 8 MG/2 MG FILM PACKET SL SCH (09:09)
[2022-05-15] MEDS: BACITRACIN 0.9 GM PACKET TP SCH (09:09)
== END 2022-05-15 09:25 | disposition home or self-care (01) | DRG 772 ==
LOC: YASAS 13:42 → Y3W 19:39
PROVIDERS: ADMIT Allergy & Immunology; ATTEND Surgery
PROC: HZ42ZZZ Group Counseling for Substance Abuse Treatment, Cognitive-Behavioral (ICD-10-PCS; principal; 2022-04-17)
DX: F11.20 Opioid dependence, uncomplicated (principal); F14.20 Cocaine dependence, uncomplicated; F10.10 Alcohol abuse, uncomplicated; F13.10 Sedative, hypnotic or anxiolytic abuse, uncomplicated; F17.210 Nicotine dependence, cigarettes, uncomplicated; F19.24 Other psychoactive substance dependence with psychoactive substance-induced mood disorder; L98.491 Non-pressure chronic ulcer of skin of other sites limited to breakdown of skin; M54.50 Low back pain, unspecified; G89.29 Other chronic pain; Z99.89 Dependence on other enabling machines and devices; Z86.19 Personal history of other infectious and parasitic diseases; Z56.0 Unemployment, unspecified; Z59.00 Homelessness unspecified
CPT/HCPCS: 36415; 80053; 81003; 83036; 85027; 86780; 86803; 87522; C9803-CS; J0475; U0003; U0005

== ENCOUNTER 2024-02-28 15:12 | Inpatient (IN) | payer OTHER ==
[2024-02-28 15:42] VITALS: BMI 22.8
[2024-02-28] MEDS ORDERED: NALOXONE (NARCAN) HCL 4 MG/0.1 ML SPRAY NS PRN (16:42)
[2024-02-28] MEDS ORDERED: NALOXONE HCL 0.4 MG/ML VIAL IM PRN (16:42)
[2024-02-28] MEDS ORDERED: IBUPROFEN 400 MG TABLET (FP) PO PRN (16:42)
[2024-02-28] MEDS ORDERED: P-EPHED 60MG/TRIPROLIDI 2.5MG TABLET PO PRN (16:42)
[2024-02-28] MEDS ORDERED: NICOTINE POLACRILEX 2 MG LOZENGE BC PRN (16:42)
[2024-02-28] MEDS ORDERED: MAGNESIUM HYDROX 2400MG/30ML ORAL SUSPENSION 30 ML CUP PO PRN (16:42)
[2024-02-28] MEDS ORDERED: guaiFENesin 600 MG TABLET.ER (FP) PO PRN (16:42)
[2024-02-28] MEDS ORDERED: DICYCLOMINE HCL 10 MG CAPSULE PO PRN (16:42)
[2024-02-28] MEDS ORDERED: BENZONATATE 200 MG CAPSULE PO PRN (16:42)
[2024-02-28] MEDS ORDERED: POLYETHYLENE GLYCOL (HEALTHYLAX) 3350 17 GM PACKET PO PRN (16:42)
[2024-02-28] MEDS ORDERED: ACETAMINOPHEN 325 MG TABLET (FP) PO PRN (16:42)
[2024-02-28] MEDS ORDERED: BENZOCAINE/MENTHOL (CHLORASEPTIC ) LOZENGE MM PRN (16:42)
[2024-02-28] MEDS ORDERED: MAG HYDROX/AL HYDROX/SIMETH 30 ML UNIT-DOSE CUP PO PRN (16:42)
[2024-02-28] MEDS: cloNIDine HCL 0.1 MG TABLET PO PRN (19:43)
[2024-02-28] MEDS: hydrOXYzine PAMOATE 25 MG CAPSULE (FP) PO PRN (22:27)
[2024-02-28] MEDS: MELATONIN 5 MG TABLETS PO SCH (22:27)
[2024-02-28] MEDS: THIAMINE 100 MG TABLET PO SCH (22:27)
[2024-02-28] MEDS: METHOCARBAMOL 500 MG TABLET PO PRN (22:27)
[2024-02-29] MEDS: IBUPROFEN 600 MG TABLET (FP) PO PRN (02:09)
[2024-02-29] MEDS: ONDANSETRON *ODT* 4 MG TABLET SL PRN (02:11)
[2024-02-29] MEDS: methaDONE HCL 10 MG TABLET (FOR DETOX USE ONLY) PO ONE ×2 (02:12→09:54)
[2024-02-29 09:01] LABS: POTASSIUM 4.3 mmol/L (3.5-5.1)
[2024-02-29 09:06] LABS: HEMATOCRIT 40.5 % (35.4-49); MCH 28.8 pg (25.7-33.7); MCHC 32.2 g/dl (32.0-35.9); MEAN CELL VOLUME 89.3 fl (80-96); PLATELET COUNT 331 10^3/uL (134-434); RBC 4.54 M/mm3 (4.00-5.60); RDW 15.2 % (11.9-15.9); WHITE BLOOD COUNT 7.3 K/mm3 (4.0-10.0)
[2024-02-29 09:15] LABS: ALBUMIN 3.4 g/dl (3.4-5.0); BLOOD UREA NITROGEN 16.8 mg/dL (7-18)
[2024-02-29 09:18] LABS: CREATININE 0.8 mg/dL (0.55-1.3)
[2024-02-29 09:19] LABS: BILIRUBIN,TOTAL 0.4 mg/dL (0.2-1)
[2024-02-29 09:20] LABS: TOT PROT 7.3 g/dl (6.4-8.2)
[2024-02-29] MEDS: PRENATAL VITAMINS W/ FOLIC ACID TABLET (FP) PO SCH (09:53)
[2024-02-29] MEDS: SUVOREXANT 5 MG TABLET PO PRN (22:59)
[2024-03-01] MEDS: BISMUTH SUBSALICYLATE 524 MG/30 ML PO PRN (14:24)
[2024-03-01] MEDS: amLODIPine BESYLATE 5 MG TABLET (FP) PO SCH (14:48)
[2024-03-01] MEDS: LOPERAMIDE HCL 2 MG CAPSULE PO PRN (19:14)
[2024-03-02] MEDS: methaDONE HCL 10 MG TABLET (FOR DETOX USE ONLY) PO ONE (09:45)
[2024-03-02] MEDS: LIDOCAINE 5% TOPICAL PATCH TP SCH (11:38)
[2024-03-02] MEDS: GABAPENTIN 100 MG CAPSULE PO SCH (13:46)
[2024-03-02] MEDS ORDERED: amLODIPine BESYLATE 10 MG TABLET (FP) PO SCH (15:45)
[2024-03-02] MEDS: amLODIPine BESYLATE 5 MG TABLET (FP) PO ONE (16:15)
[2024-03-02] MEDS: LIDOCAINE PATCH REMOVAL MC SCH (22:09)
[2024-03-03] MEDS: amLODIPine BESYLATE 10 MG TABLET (FP) PO SCH (09:51)
[2024-03-03] MEDS: cloNIDine HCL 0.1 MG TABLET PO SCH (17:06)
[2024-03-03] MEDS: methaDONE HCL 10 MG TABLET PO PRN (21:41)
[2024-03-04] MEDS: methaDONE 40 MG, methaDONE 10 MG PO ONE (09:46)
[2024-03-04] MEDS: methaDONE HCL 10 MG TABLET (FOR DETOX USE ONLY) PO ONE (09:46)
[2024-03-04] MEDS: METHOCARBAMOL 500 MG TABLET PO PRN (17:17)
[2024-03-04] MEDS: SUVOREXANT 5 MG TABLET PO PRN (22:12)
[2024-03-05] MEDS ORDERED: cloNIDine HCL 0.1 MG TABLET PO PRN
[2024-03-05] MEDS: methaDONE 40 MG, methaDONE 20 MG PO ONE (09:25)
[2024-03-05] MEDS: diphenhydrAMINE HCL 25 MG CAPSULE (FP) PO ONE ×2 (12:23→17:03)
[2024-03-05] MEDS: GABAPENTIN 300 MG CAPSULE PO SCH (14:14)
[2024-03-05] MEDS: HYDROCORTISONE 0.5% TOPICAL CREAM 30 GM TUBE TP PRN (16:29)
[2024-03-05] MEDS ORDERED: CALAMINE 8% TOPICAL LOTION 177 ML BOTTLE TP PRN (23:04)
[2024-03-06] MEDS: methaDONE 40 MG, methaDONE 30 MG PO ONE (09:34)
[2024-03-06] MEDS: NALOXONE (NYS OPIOID OVERDOSE PROGRAM) 4 MG/0.1 ML SPRAY NS ONE (13:35)
[2024-03-07] MEDS: methaDONE HCL 40 MG DISPERSABLE TABLET PO ONE (09:37)
[2024-03-07] MEDS: NICOTINE POLACRILEX 2 MG GUM BUC PRN (21:55)
[2024-03-08 06:18] VITALS: RESP 16
[2024-03-08 09:33] VITALS: BP 113/64; PULSE 74; TEMP 97.9
[2024-03-08] MEDS: methaDONE 40 MG, methaDONE 30 MG PO ONE (09:36)
[2024-03-08] MEDS: NALOXONE (NYS OPIOID OVERDOSE PROGRAM) 4 MG/0.1 ML SPRAY NS PRN (09:50)
[2024-03-08] MEDS ORDERED: methaDONE HCL 40 MG DISPERSABLE TABLET PO ONE (10:00)
[2024-03-08] MEDS ORDERED: methaDONE 80 MG, methaDONE 10 MG PO ONE (10:00)
== END 2024-03-08 09:55 | disposition other institution (70) | DRG 773 ==
LOC: YASAS 15:12 → Y3N 17:27
PROVIDERS: ADMIT Allergy & Immunology; ATTEND Surgery
PROC: HZ2ZZZZ Detoxification Services for Substance Abuse Treatment (ICD-10-PCS; principal; 2024-02-28)
DX: F11.23 Opioid dependence with withdrawal (principal); F14.20 Cocaine dependence, uncomplicated; F12.20 Cannabis dependence, uncomplicated; F17.210 Nicotine dependence, cigarettes, uncomplicated; F19.24 Other psychoactive substance dependence with psychoactive substance-induced mood disorder; F20.9 Schizophrenia, unspecified; G47.00 Insomnia, unspecified; I10 Essential (primary) hypertension; L20.9 Atopic dermatitis, unspecified; M54.50 Low back pain, unspecified; G89.29 Other chronic pain
CPT/HCPCS: 36415; 80053; 80305; 80307; 85027; 86780; 93005; 93010; Q0162